=== PATIENT | female | born 1980 | race Caucasian/White ===

== ENCOUNTER 2017-03-31 11:20 | Day surgery (SDC) | payer OTHER ==
[~2017-03-31 11:20] MED LIST: Bupivacaine 0.5% 50 ML MDV ONE; Lidocaine 1% with EPINEPHrine 1:100,000 50 ML MDV ONE; Midazolam 1 MG/ML 2 ML SDV ONE; Propofol 200 MG/20 ML SDV ONE; fentaNYL 100 MCG/2 ML SDV ONE
[2017-03-31] MEDS ORDERED: Sodium Chloride 0.9% 1,000 ML IV SCH (11:30)
[2017-03-31] MEDS ORDERED: metroNIDAZOLE/Normal Saline 500 MG in Premix Bag 1 BAG IV ONE (12:00)
[2017-03-31] MEDS ORDERED: ceFAZolin 2 GM in Premix Bag 1 BAG IV ONE (12:00)
[2017-03-31] MEDS ORDERED: ceFAZolin 2 GM in Sodium Chloride 0.9% 50 ML IV ONE (12:00)
[2017-03-31 13:40] VITALS: BP 126/79
--- NOTE | 2017-04-06 14:17 | OR ---
DATE OF PROCEDURE: 03/31/2017 PROCEDURE PERFORMED: Excision of left perineal lesion, approximately 4 cm in size, full- thickness. PREOPERATIVE DIAGNOSIS: Painful infra-perineal lesion requiring excision. POSTOPERATIVE DIAGNOSIS: Painful infra-perineal lesion requiring excision. Risks, benefits, alternatives, and limitations, including but not limited to infection, bleeding, and chronic wound formation were explained, and the patient wishes to proceed. PROCEDURE IN DETAIL: The patient was placed in the supine position, in a frog-leg type position. The wound which was approximately 2 cm lateral and 2 cm inferior to her labia was preoperatively identified by the patient. An elliptical type incision was made after anesthetizing with lidocaine, and this was carried down full thickness. This was checked for hemostasis, which was achieved. The wound was closed with 3-0 Vicryl and 4-0 Vicryl in an interrupted and running fashion after thorough irrigation. Dressings were applied. The patient tolerated the procedure well. Chandler Sneed MD /[id number]
== END 2017-03-31 14:03 | disposition home or self-care (01) ==
LOC: JP.SDS 11:20
PROVIDERS: ATTEND Surgery
DX: L73.8 Other specified follicular disorders (principal); Z88.1 Allergy status to other antibiotic agents
CPT/HCPCS: 11424; 12042; J0690; J2250; J2704; J3010; J7040; J7050; 88305; 88312

== ENCOUNTER 2018-03-02 07:17 | Day surgery (SDC) | payer OTHER ==
[~2018-03-02 07:17] MED LIST changes: -Bupivacaine 0.5% 50 ML MDV ONE; -Lidocaine 1% with EPINEPHrine 1:100,000 50 ML MDV ONE
[2018-03-02] MEDS ORDERED: Dextrose 5%-Lactated Ringers 1,000 ML IV SCH (08:15)
[2018-03-02] MEDS ORDERED: Glycopyrrolate 0.2 MG/ML 2 ML SDV IVPUSH ONE ×2 (08:45→10:15)
[2018-03-02 11:17] VITALS: BP 132/91
--- NOTE | 2018-03-12 07:56 | OR ---
DATE OF PROCEDURE: 03/02/2018 PREOPERATIVE DIAGNOSES: Worsening heartburn and intermittent aspiration of esophageal contents, status post laparoscopic adjustable gastric band. POSTOPERATIVE DIAGNOSES: 1. Retained esophageal bilious fluid and scattered food with severe esophageal dilation and marked gastroesophageal reflux disease associated with laparoscopic adjustable gastric band. 2. Mild antral gastritis. PROCEDURE PERFORMED: Esophagogastroduodenoscopy with: 1. Biopsies of antrum for CLOtest. 2. Biopsies of the esophagogastric junction for histologic evaluation. ANESTHESIA: IV sedation. INDICATION FOR PROCEDURE: This is a 37-year-old, status post laparoscopic adjustable gastric band, presenting with worsening problems with heartburn and intermittent aspiration of esophageal contents. This is despite removal of fluid from the band, and the plan is to proceed with upper GI endoscopy for diagnostic purposes. Potential risks including bleeding and perforation were discussed, and the patient wishes to proceed. DETAILS OF PROCEDURE: The patient was taken to the operating room and placed in a left lateral decubitus position. IV sedation was administered, after which the upper GI endoscope was passed orally through the length of the esophagus and into the stomach with retroflexion view of the fundus, and thereafter, through the pyloric channel and into the junction of the third and fourth portions of the duodenum. Findings included some redness in the hypopharynx and larynx, consistent with some intermittent aspiration. The upper esophageal sphincter and esophageal body were inspected without significant inflammation, but the esophageal body was quite dramatically dilated. As one progressed more into the distal esophagus, there was diffuse reddening and marked upward extension of the columnar mucosal line well above the upper gastric folds and marked friability and edema of the mucosa. Within the distal esophagus, there was some retained bilious fluid, along with some scattered old food, indicative of very poor esophageal emptying. The scope easily passed through the imprint of the band in the upper stomach, which was appropriately located, i.e. there was no mechanical obstruction at the level of the band. Remainder of the stomach showed some mild redness in the antral area, and the pyloric channel and duodenum were unremarkable. At this point, biopsies were obtained from the antrum and sent for CLOtest for H. pylori. Multiple biopsies were obtained from the esophagogastric junction and sent for histologic evaluation. Minimal bleeding from the biopsy sites was seen, and the procedure was then concluded. The patient was taken to the recovery room in satisfactory condition. The plan will be to apply for conversion of the band status to Kay-en-Y gastric bypass. The present situation is particularly unsafe, given the risk of aspiration, as well as esophageal complications, and her insurance carrier will be contacted regarding consideration of conversion. Oswaldo Blood MD /[id number]
== END 2018-03-02 11:15 | disposition home or self-care (01) ==
LOC: JP.SDS 07:17
PROVIDERS: ATTEND Surgery
DX: K21.0 Gastro-esophageal reflux disease with esophagitis (principal); K29.50 Unspecified chronic gastritis without bleeding; Z88.1 Allergy status to other antibiotic agents; Z98.84 Bariatric surgery status; F17.200 Nicotine dependence, unspecified, uncomplicated
CPT/HCPCS: 43239; 87081; 88305; J2250; J2704; J3010; J7042; J3490

== ENCOUNTER 2018-07-31 07:30 | Inpatient (IN) | payer OTHER ==
[2018-08-02] MEDS ORDERED: Gabapentin 300 MG Cap PO ONE (05:45)
[2018-08-02] MEDS ORDERED: Scopolamine 1.5 MG Transdermal Patch TOP ONE (05:45)
[2018-08-02] MEDS ORDERED: Acetaminophen 500 MG Tab PO ONE (05:45)
[2018-08-02] MEDS ORDERED: Celecoxib 200 MG Cap PO ONE (05:45)
[2018-08-02] MEDS ORDERED: Dextrose 5%-Lactated Ringers 1,000 ML IV SCH ×2 (06:30→11:30)
[2018-08-02] MEDS ORDERED: Ondansetron 4 MG/2 ML SDV ONE (07:12)
[2018-08-02] MEDS ORDERED: Dexamethasone 4 MG/ML SDV ONE (07:12)
[2018-08-02] MEDS ORDERED: Neostigmine Methylsulfate 1 MG/ML 5 ML Syringe ONE (07:12)
[2018-08-02] MEDS ORDERED: Rocuronium 50 MG/5 ML Vial ONE ×2 (07:12→08:59)
[2018-08-02] MEDS ORDERED: Glycopyrrolate 0.2 MG/ML 5 ML MDV ONE (07:12)
[2018-08-02] MEDS ORDERED: Propofol 200 MG/20 ML SDV ONE (07:12)
[2018-08-02] MEDS ORDERED: fentaNYL 250 MCG/5 ML SDV ONE (07:12)
[2018-08-02] MEDS ORDERED: cefOXitin 2 GM in Sodium Chloride 0.9% 50 ML IV ONE (07:30)
[2018-08-02] MEDS: cefOXitin 2 GM Vial ONE ×2 (08:27→09:25)
[2018-08-02] MEDS ORDERED: Lidocaine 2% 100 MG/5 ML Syringe IVPUSH ONE (09:00)
[2018-08-02] MEDS ORDERED: Ketamine 500 MG/5 ML MDV IV SCH (09:00)
[2018-08-02] MEDS ORDERED: Lidocaine 0.4%/D5W 2 GM/500 ML BAG IV SCH (09:00)
[2018-08-02] MEDS ORDERED: Ropivacaine 35 ML, Dexamethasone 8 MG, EPINEPHrine 0.4 MG, Sodium Chloride 0.9% 42.6 ML NERVRT SCH ×4 (09:00)
[2018-08-02] MEDS ORDERED: fentaNYL 100 MCG/2 ML SDV ONE (09:05)
[2018-08-02] MEDS: Bupivacaine 0.5%/EPINEPHrine 1:200,000 50 ML MDV ONE ×2 (09:35→09:38)
[2018-08-02] MEDS ORDERED: Ondansetron 4 MG/2 ML SDV IVPUSH ONE (10:15)
[2018-08-02] MEDS ORDERED: hydrOXYzine HCl 100 MG/2 ML SDV IM ONE (10:21)
[2018-08-02] MEDS ORDERED: fentaNYL 100 MCG/2 ML SDV IVPUSH ONE (10:21)
[2018-08-02] MEDS: Lidocaine 0.4%/D5W 2 GM/500 ML BAG IV SCH ×2 (11:00→19:29)
[2018-08-02] MEDS ORDERED: SCOPOLAMINE PATCH CHECK TOP SCH (12:00)
[2018-08-02] MEDS ORDERED: Metoclopramide 10 MG/2 ML SDV IVPUSH PRN (12:00)
[2018-08-02] MEDS ORDERED: hydrOXYzine HCl 100 MG/2 ML SDV IM PRN (12:00)
[2018-08-02] MEDS ORDERED: Pantoprazole 40 MG Vial IVPUSH SCH ×2 (12:00)
[2018-08-02] MEDS ORDERED: Ondansetron 4 MG/2 ML SDV IVPUSH PRN (12:00)
[2018-08-02] MEDS ORDERED: diphenhydrAMINE 50 MG/ML SDV IVPUSH PRN (12:00)
[2018-08-02] MEDS ORDERED: Labetalol 20 MG/4 ML Syringe IVPUSH PRN (12:00)
[2018-08-02] MEDS: Acetaminophen Soln 650 MG/20.3 ML UD Cup PO SCH ×2 (12:10→17:23)
[2018-08-02] MEDS ORDERED: HYDROmorphone/Normal Saline 15 MG/30 ML PCA IV PRN (13:00)
[2018-08-02] MEDS ORDERED: Naloxone 0.4 MG/ML SDV IV PRN (13:02)
[2018-08-02] MEDS: Gabapentin 250 MG/5 ML Solution ML 470 ML Bottle PO SCH ×2 (13:35→20:58)
[2018-08-02] MEDS: cefOXitin 2 GM in Sodium Chloride 0.9% 50 ML IV SCH ×2 (13:35→20:59)
[2018-08-02] MEDS ORDERED: MVI, Adult with Vitamin K 10 ML, Thiamine 200 MG, Chromium/Copper/Mang/Selen/Zn 1 ML in... IV SCH ×4 (16:00)
[2018-08-02] MEDS: Heparin Sodium 5,000 Units/ML Vial SUBCUT SCH (16:42)
[2018-08-03] MEDS: Acetaminophen Soln 650 MG/20.3 ML UD Cup PO SCH ×2 (01:10→05:01)
[2018-08-03] MEDS: cefOXitin 2 GM in Sodium Chloride 0.9% 50 ML IV SCH ×2 (01:19→07:40)
[2018-08-03] MEDS ORDERED: Iohexol 647 MG/ML 50 ML SDV PO STA (01:20)
[2018-08-03] MEDS: Heparin Sodium 5,000 Units/ML Vial SUBCUT SCH (04:52)
[2018-08-03] MEDS ORDERED: Ondansetron 4 MG Tab.DIS PO PRN (07:23)
[2018-08-03] MEDS ORDERED: HYDROmorphone 2 MG Tab PO PRN (07:25)
[2018-08-03] MEDS ORDERED: LORazepam 0.5 MG Tab PO PRN (07:27)
[2018-08-03] MEDS ORDERED: traZODone 50 MG Tab PO PRN (07:27)
[2018-08-03] MEDS ORDERED: Pantoprazole 40 MG Tab.CR PO SCH (07:30)
[2018-08-03] MEDS ORDERED: Dextrose 5%-Lactated Ringers 1,000 ML IV SCH (07:30)
[2018-08-03] MEDS ORDERED: Lubiprostone 24 MCG Cap PO SCH (08:00)
[2018-08-03] MEDS ORDERED: Celecoxib 200 MG Cap PO SCH (08:00)
[2018-08-03 08:04] VITALS: BP 106/72
[2018-08-03] MEDS: Gabapentin 250 MG/5 ML Solution ML 470 ML Bottle PO SCH (08:46)
[2018-08-03] MEDS ORDERED: Venlafaxine 37.5 MG Cap.ER PO SCH (09:00)
--- NOTE | 2018-08-03 09:08 | DISCH ---
ADMISSION DIAGNOSES: Intolerance to lap band; obesity, BMI 31; vitamin D deficiency; postsurgical malabsorption; B12 deficiency; B complex deficiency; compulsive overeating; gastroesophageal reflux disease; depression/anxiety. DISCHARGE DIAGNOSES: Removal of laparoscopic gastric band system, formation of laparoscopic Kay-en-Y gastric bypass surgery, liver biopsy, and partial gastrectomy for intolerance to lap band, hepatomegaly, portion of stomach devascularized after takedown of lap band. Surgeon, Oswaldo Blood MD. Date of surgery 08/02/2018. HISTORY OF PRESENT ILLNESS: Sol is a 37-year-old female with intolerance to lap band and obesity with increasing comorbidities. After preoperative evaluation and discussion of possible risks and possible complications, she wished to proceed with surgical procedure. HOSPITAL COURSE: Sol had her surgery on 08/02/2018. She had no operative complications. On postoperative day #1, her upper GI was normal. Her activity was good. Pain managed. She received adequate dietary instructions and oral intake adequate. Vital signs were stable and she was able to be discharged to home without any complications. PHYSICAL EXAMINATION: GENERAL: Sol is a 37-year-old female. VITAL SIGNS: Height is 5 feet 4 inches. Weight is 180 pounds and 6.4 ounces, BMI 31. Last temperature was 08/02/2018 at 2300 hours. Vital signs at 0600 hours; pulse 84, respirations 16, and blood pressure 129/77. HEENT: Negative. NECK: Supple. HEART: Regular rate and rhythm. LUNGS: Clear. ABDOMEN: Dressings dry and intact. At time of examination, her FLOR drain was in, but will be removed. Abdominal binder is on. EXTREMITIES: Without peripheral edema. DISPOSITION: Discharged to home. CONDITION: Stable and improving. FOLLOWUP APPOINTMENT: Follow up with Ping Vizcaino PA-C on 08/13/2018 at 9:00 a.m. HOME PRESCRIPTIONS: 1. Tylenol 650 mg either liquid or chewable q.6 hours. 2. Celebrex 200 mg p.o. daily #14. 3. Dilaudid 2 mg one to two every 4 hours p.r.n. pain #20. 4. Zofran ODT 4 mg q.4 hours p.r.n. nausea #30. To resume home medications of: 1. Lorazepam 0.5 mg every 6 hours p.r.n. anxiety. 2. Amitiza 24 mcg oral twice daily. 3. Protonix 40 mg oral twice daily. 4. Venlafaxine 37.5 mg oral daily. 5. Trazodone 50 mg oral at bedtime p.r.n. sleep. Discontinue taking all vitamin supplements including prednisone. DISCHARGE DIET: Diet after discharge: Step-2 gastric bypass diet with no cereals. Drink 8 to 10 glasses of water a day. ACTIVITY: As tolerated. No lifting greater than 10 pounds for 2 weeks. Other activity, walk at least 6 times inside your home daily then progress as tolerated. Driving, do not drive while on pain medication. Shower/bathing, may shower. DISCHARGE INSTRUCTIONS: Notify provider if any fever, increased pain, nausea, vomiting, wound incision, keep site clean and dry. Wear abdominal binder for 2 weeks and as tolerated. SPECIAL INSTRUCTIONS: 1. Use incentive spirometer 10 times every hour while awake for 1 week. 2. Keep a record of protein and fluid intake and bring to clinic appointment.
--- NOTE | 2018-08-03 10:33 | CR ---
UGI wo KUB HISTORY: eval R -Y GBP FINDINGS: After administration of oral contrast, upright views were obtained. Post operative changes gastric bypass. Surgical drains in place. No evidence for leak. Contrast passes freely into proximal small bowel loops. IMPRESSION: No evidence for leak or obstruction.
[2018-08-03] MEDS ORDERED: MVI, Adult with Vitamin K 10 ML, Thiamine 200 MG, Chromium/Copper/Mang/Selen/Zn 1 ML in... IV SCH ×4 (16:00)
[2018-08-04] MEDS ORDERED: Cyanocobalamin (Vitamin B12) 1,000 MCG/ML SDV IM ONE (09:00)
--- NOTE | 2018-08-09 09:13 | OR ---
DATE OF PROCEDURE: 08/02/2018 PREOPERATIVE DIAGNOSES: 1. Intolerance to laparoscopic adjustable gastric band. 2. Marked hepatomegaly. 3. A portion of stomach devascularized, status post takedown of gastric band. PROCEDURES: Diagnostic laparoscopy with: 1. Removal of laparoscopic adjustable gastric band system (14660). 2. Formation of laparoscopic Kay-en-Y gastric bypass with long limb gastroenterostomy (73626). 3. Eduard-Cut needle liver biopsy (91848). 4. Partial gastrectomy (52484). ANESTHESIA: General. SEARCH ENGINE MARKETING SPECIALIST: Ping Vizcaino PA-C. INDICATIONS FOR PROCEDURE: This is a 37-year-old, status post previous laparoscopic adjustable gastric band. She recently has had problems with worsening esophagitis and intermittent aspiration of gastric contents, and plan is to proceed with removal of the band and conversion to Kay-en-Y gastric bypass. Potential risks including bleeding, infection, leaks from various GI tract closures, problems with bowel obstruction over time, as well as possibility of cardiopulmonary, septic, or hemorrhagic complications leading to were discussed, and the patient wishes to proceed. DETAILS OF PROCEDURE: The patient was taken to operating room and placed in the supine position. After general endotracheal anesthesia was induced, she was converted to a lithotomy position. The abdomen was prepped and draped and orogastric tube temporarily placed. At 15 cm inferior and 5 cm left of xiphoid process, a transverse incision was made, peritoneal cavity entered under direct vision with an Optiview trocar, inflated to 15 mmHg pressure with CO2. Laparoscope was then reinserted. No underlying trocar insertion site injuries were seen. Following this, 5 additional trocars were placed across the upper and mid abdomen and bilateral transverse abdominis plane blocks were then placed. The port tubing was then divided near the band to allow traction of the band. The band was then freed up of surrounding soft tissue attachments. During the course of this, a portion of the stomach became devascularized, and this was resected with a JERED stapler and that specimen of stomach removed. The band was then eventually freed up enough that the band could be removed, and this was then taken out through the left lateral trocar site. Remainder of the port tubing that was intraperitoneal was then divided more or less flush with the abdominal wall and that also then separately removed. Attention was then taken to formation of the gastric pouch at a plane just above the imprint of the band. The stomach was dissected free circumferentially, and then the pouch formed with a firings of the JERED black loads. Upon completion of the pouch, both staple lines appeared to be intact. During the course of dissection, the patient was noted to have marked hepatomegaly, and liver biopsies were obtained from left lobe of the liver. Attention was then taken to the formation of the Kay limb. The small bowel was then traced out 150 cm distal to the ligament of Treitz, where it was divided with a JERED stapler. Small bowel was then traced out an additional 200 cm, where the [id number] enteroenterostomy was accomplished with internal firing of the Endo-JERED 60 mm stapler, common opening was then closed transversely with same stapler, angles anastomosed, and mesenteric defect approximated with some 0 Ethibond stitch, along with fibrin sealant. The divided end of the Kay limb was then from the mesentery for a few centimeters, which allowed an antecolic position of the Kay limb up to level of the gastroesophageal junction without tension. The anvil of a 25 mm EEA stapler was then attached to [place] sump type tube, the latter taken down through the mouth and brought out through a small opening in the gastric pouch, allowing the anvil likewise to be pulled down to within the gastric pouch. Divided end of the Kay limb was then opened and the main body of the EEA stapler passed several centimeters into the lumen of the small bowel, brought up the anvil, united with it, thus creating the gastrojejunostomy. Upon removal of the stapler, double donuts of mucosa were noted within it, and small bowel was closed off with a vascular staple line. Gastrojejunostomy was reinforced with some 3-0 Vicryl seromuscular stitch, along with fibrin sealant. Leak test was accomplished with injection of 120 mL of air into the gastric pouch while submerged with cefoxitin-containing saline solution. No leaks were seen. A single Loy-Chu drain was taken out through the left lateral trocar site and placed adjacent to the gastrojejunostomy and from there up into the splenic fossa. The trocars were then sequentially removed. The peritoneal cavity deflated. The incision was closed with some 4- 0 Vicryl skin stitch and drains fixed with some 4-0 Vicryl stitch as well. Dressing was applied. The patient taken to the recovery room in satisfactory condition. There were no evident complications. Physician cataloging assistant, Ping Vizcaino, played an essential role in assisting in this case, helping to position the patient, retract structures as needed, as well as suturing and cutting sutures when indicated. Her presence improved patient safety and decreased operative time. Oswaldo Blood MD /[id number]
== END 2018-08-03 10:13 | disposition home or self-care (01) | DRG 327 ==
LOC: JP.SDS 08-02 05:27 → EDSTATUS 08-02 07:15 → JP.SDSSCHI 08-02 09:00 → JP.2SS 08-02 09:01
PROVIDERS: ADMIT Surgery; ATTEND Surgery
PROC: 0DP64CZ Removal of Extraluminal Device from Stomach, Percutaneous Endoscopic Approach (ICD-10-PCS; principal; 2018-08-02)
PROC: 0D164ZA Bypass Stomach to Jejunum, Percutaneous Endoscopic Approach (ICD-10-PCS; 2018-08-02)
PROC: 0FB24ZX Excision of Left Lobe Liver, Percutaneous Endoscopic Approach, Diagnostic (ICD-10-PCS; 2018-08-02)
PROC: 0DB64ZZ Excision of Stomach, Percutaneous Endoscopic Approach (ICD-10-PCS; 2018-08-02)
PROC: 3E0T3BZ Introduction of Anesthetic Agent into Peripheral Nerves and Plexi, Percutaneous Approach (ICD-10-PCS; 2018-08-02)
DX: K95.09 Other complications of gastric band procedure (principal); K91.2 Postsurgical malabsorption, not elsewhere classified; R16.0 Hepatomegaly, not elsewhere classified; E66.9 Obesity, unspecified; K31.89 Other diseases of stomach and duodenum; Y83.8 Other surgical procedures as the cause of abnormal reaction of the patient, or of later complication, without mention of misadventure at the time of the procedure; Y92.009 Unspecified place in unspecified non-institutional (private) residence as the place of occurrence of the external cause; E55.9 Vitamin D deficiency, unspecified; E53.8 Deficiency of other specified B group vitamins; Z98.84 Bariatric surgery status; Z68.31 Body mass index [BMI] 31.0-31.9, adult; R63.2 Polyphagia; E53.9 Vitamin B deficiency, unspecified; K21.9 Gastro-esophageal reflux disease without esophagitis; F32.9 Major depressive disorder, single episode, unspecified; F41.9 Anxiety disorder, unspecified; Z88.1 Allergy status to other antibiotic agents
CPT/HCPCS: 36415; 74240; 74240-26; 81025; 82962; 86850; 86900; 86901; 88300; 88307; 88313; 94762; A9270-GY; C9113; J0171; J0694; J1100; J1170; J1644; J2001; J2405; J2704; J2710; J2795; J3010; J3410; J3411; J3490; J7030; J7042; J7050; Q9967

== ENCOUNTER 2018-11-24 09:06 | Day surgery (SDC) | payer OTHER ==
[~2018-11-24 09:06] MED LIST changes: +Bupivacaine 0.5%/EPINEPHrine 1:200,000 50 ML MDV ONE; +Dexamethasone 4 MG/ML SDV ONE; +Glycopyrrolate 0.2 MG/ML 5 ML MDV ONE; +Meropenem 500 MG SDV ONE; -Midazolam 1 MG/ML 2 ML SDV ONE; +Neostigmine Methylsulfate 1 MG/ML 5 ML Syringe ONE; +Ondansetron 4 MG/2 ML SDV ONE; +Rocuronium 50 MG/5 ML Vial ONE; +Succinylcholine 200 MG/10 ML MDV ONE; -fentaNYL 100 MCG/2 ML SDV ONE; +fentaNYL 250 MCG/5 ML SDV ONE
[2018-11-24] MEDS ORDERED: Acetaminophen 500 MG Tab PO ONE (09:40)
[2018-11-24] MEDS ORDERED: ceFAZolin 2 GM in Premix Bag 1 BAG IV ONE (09:40)
[2018-11-24] MEDS ORDERED: Ropivacaine 30 ML, Dexamethasone 8 MG, EPINEPHrine 0.4 MG, Sodium Chloride 0.9% 47.6 ML NERVRT SCH ×4 (10:00)
[2018-11-24] MEDS ORDERED: Dextrose 5%-Lactated Ringers 1,000 ML IV SCH (10:15)
[2018-11-24] MEDS ORDERED: Ketorolac 60 MG/2 ML SDV ONE (12:23)
[2018-11-24] MEDS ORDERED: Meropenem 500 MG SDV IRR ONE (13:41)
[2018-11-24 13:54] VITALS: BP 114/55
--- NOTE | 2018-12-07 11:03 | OR ---
DATE OF PROCEDURE: 11/24/2018 PREOPERATIVE DIAGNOSES: 1. Dysphagia, status post Kay-en-Y gastric bypass. 2. Persistent pain at the left subcostal hernia repair site. POSTOPERATIVE DIAGNOSES: 1. Minimal stricturing at the gastrojejunostomy. 2. Recurrent incisional hernia. 3. 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 OPERATIVE PROCEDURE: 1. Upper GI endoscopy with dilation of gastrojejunostomy (43426). 2. Diagnostic laparoscopy with lysis of adhesions. a. Repair of recurrent incisional hernia with mesh (18199). b. Placement of Interceed mesh to limit recurrent adhesion formation (25437). 3. Excision of probable abdominal wall neuroma in the left subcostal area (32882). ANESTHESIA: General. INDICATION FOR PROCEDURE: This is a 38-year-old female presenting with some persistent, at this point, [id number] dysphagia, status post Kay-en-Y gastric bypass. She has had previous strictures at the gastrojejunostomy that have been dilated. Plan is to proceed with upper GI endoscopy with dilation as indicated. Potential risks, including bleeding and perforation, were discussed. The patient also has chronic pain in the area of a left subcostal incisional hernia. This is associated with some tenderness in the scar overlying this as well. Plan with regard to this is to proceed with diagnostic laparoscopy, repair of the likely recurrent hernia with mesh, and then excision of the scar overlying that to alleviate what may likely be an area of neuroma involving that scar. Potential risks including bleeding, infection, injury to underlying viscera, problems with mesh becoming infected or the hernia recurring, as well as the possibility of persistent pain postoperatively were gone over, and the patient wishes to proceed. DETAILS OF PROCEDURE: The patient was taken to the operating room and placed in a supine position. After general endotracheal anesthesia was induced, she was converted to a lithotomy position. The Lambert catheter was inserted, which was removed at the end of the procedure, and the abdomen was prepped and draped. In the left lower quadrant, a transverse incision was made and the peritoneal cavity was entered under direct vision with an Optiview trocar and inflated to 15 mmHg pressure with CO2. Some adhesions that were in the area of the pelvis between the omentum and the pelvic and abdominal wall were taken down. The hernia at this point did not have any significant incarcerated components and was fairly small in terms of the convexity visualized at the hernia site. Some additional adhesions in that area were then taken down as well. Following this, then, a 15.2 cm circular Ventralight mesh was selected and placed in intraabdominal location, after being soaked in an antibiotic-containing saline solution. Through the center of the hernia, a small stab wound was made and the inflation balloon brought up through the abdominal wall, centering the mesh over the area of the herniation. Mesh was then further affixed circumferentially to the abdominal wall with absorbable tacking screws, after the balloon was inflated and pushed the mesh up against the abdominal wall. Once this was well fixed in all directions, the balloon was deflated and removed. There appeared to be coverage of the area of herniation in all directions. To limit recurrent adhesion formation by displacing the viscera from the pelvic and abdominal wall, Interceed mesh was then placed underlying the mesh, extending from there down toward the pelvis, and at that point, no further intraabdominal problems were noted. The trocars were then sequentially removed. The fascia at the 12 mm site was closed with 0 Vicryl stitch and the skin with 4-0 Vicryl skin stitch. The area in the left subcostal area where the scar was present was then incised with a transverse incision, which continued down through the skin and subcutaneous tissue. The dense scar in that area was then removed. This came out more or less in 3 pieces, and at least one of these had what appeared to be a visible nerve entering it, likely associated with a neuroma formation. Following removal of the scar, there was some disruption of the anterior muscular fascia, which was then closed with a #1 Vicryl stitch and subcutaneous tissue was approximated with 4-0 Vicryl stitch and the skin was closed with 4-0 Vicryl skin stitch as well. Dressing was applied. At this point, the upper GI endoscope was passed orally through the length of the esophagus, and the scope was able to be passed through the gastrojejunostomy at this time with there only being a mild stricture present. A 36-Romanian dilator was then inflated across the anastomosis. This resulted in slight increase in diameter. The scope was then withdrawn, procedure was concluded. The patient was taken to the recovery room in satisfactory condition. Oswaldo Blood MD /[id number]
== END 2018-11-24 14:43 | disposition home or self-care (01) ==
LOC: JP.SDS 09:06 → JP.MS 12:45 → JP.SDS 14:43
PROVIDERS: ATTEND Surgery
DX: K91.89 Other postprocedural complications and disorders of digestive system (principal); K43.2 Incisional hernia without obstruction or gangrene; D36.15 Benign neoplasm of peripheral nerves and autonomic nervous system of abdomen; K21.9 Gastro-esophageal reflux disease without esophagitis; F17.200 Nicotine dependence, unspecified, uncomplicated; Z98.84 Bariatric surgery status; K91.2 Postsurgical malabsorption, not elsewhere classified; Z88.1 Allergy status to other antibiotic agents
CPT/HCPCS: 36415; 43245; 49656; 49999; 64774; 80053; 83735; 84100; 85027; 88304; 88342; C1781; J0330; J0690; J1100; J1885; J2020; J2185; J2405; J2704; J2710; J3010; J3490; J7042

== ENCOUNTER 2019-02-18 07:01 | Day surgery (SDC) | payer OTHER ==
[~2019-02-18 07:01] MED LIST changes: -Bupivacaine 0.5%/EPINEPHrine 1:200,000 50 ML MDV ONE; -Dexamethasone 4 MG/ML SDV ONE; -Glycopyrrolate 0.2 MG/ML 5 ML MDV ONE; -Meropenem 500 MG SDV ONE; +Midazolam 1 MG/ML 2 ML SDV ONE; -Neostigmine Methylsulfate 1 MG/ML 5 ML Syringe ONE; -Ondansetron 4 MG/2 ML SDV ONE; -Rocuronium 50 MG/5 ML Vial ONE; -Succinylcholine 200 MG/10 ML MDV ONE; +fentaNYL 100 MCG/2 ML SDV ONE; -fentaNYL 250 MCG/5 ML SDV ONE
[2019-02-18] MEDS ORDERED: Cyanocobalamin (Vitamin B12) 1,000 MCG/ML SDV IM ONE (07:30)
[2019-02-18] MEDS ORDERED: Glycopyrrolate 0.2 MG/ML 2 ML SDV IVPUSH ONE (07:30)
[2019-02-18] MEDS ORDERED: Lactated Ringers 1,000 ML IV SCH (07:45)
[2019-02-18] MEDS ORDERED: MVI, Adult with Vitamin K 10 ML, Thiamine 200 MG, Chromium/Copper/Mang/Selen/Zn 1 ML in... IV ONE ×8 (09:00)
[2019-02-18 10:31] VITALS: BP 102/64
--- NOTE | 2019-02-25 14:14 | OR ---
DATE OF PROCEDURE: 02/18/2019 PREOPERATIVE DIAGNOSIS: Probable stricture at gastrojejunostomy. POSTOPERATIVE DIAGNOSIS: Moderate stricture at gastrojejunostomy. OPERATIVE PROCEDURE: Upper GI endoscopy with dilation of gastrojejunostomy (61544). ANESTHESIA: IV sedation. INDICATION FOR PROCEDURE: This is a 38-year-old female presenting with probable stricturing at her gastrojejunostomy. Plan is to proceed with upper GI endoscopy with dilation as indicated. Potential risks including bleeding and perforation were discussed, and the patient wishes to proceed. DETAILS OF PROCEDURE: The patient was taken to the operating room and placed in a left lateral decubitus position. IV sedation was administered, after which the upper GI endoscope was passed orally through the length of the esophagus and into the area of the gastrojejunostomy. The 1 cm scope could not quite be passed through that anastomosis. A Bard gastrointestinal balloon catheter was then centered across the anastomosis and inflated to 36-Mongolian size. This was held in this position for 1 minute, after which the balloon catheter was deflated and withdrawn. Scope was easily passed through the anastomosis. No complications were noted. The procedure concluded. The patient was taken to the recovery room in a satisfactory condition. Oswaldo Blood MD /[id number]
== END 2019-02-18 10:47 | disposition home or self-care (01) ==
LOC: JP.SDS 07:01
PROVIDERS: ATTEND Surgery
DX: K91.89 Other postprocedural complications and disorders of digestive system (principal); K21.9 Gastro-esophageal reflux disease without esophagitis; Z93.4 Other artificial openings of gastrointestinal tract status; Z88.1 Allergy status to other antibiotic agents
CPT/HCPCS: 43245; J2250; J2704; J3010; J3411; J3420; J7120

== ENCOUNTER 2019-03-22 07:16 | Day surgery (SDC) | payer OTHER ==
[2019-03-22] MEDS ORDERED: Cyanocobalamin (Vitamin B12) 1,000 MCG/ML SDV IM ONE (07:45)
[2019-03-22] MEDS ORDERED: Glycopyrrolate 0.2 MG/ML 2 ML SDV IVPUSH ONE (07:45)
[2019-03-22] MEDS ORDERED: Lactated Ringers 1,000 ML IV SCH (07:45)
[2019-03-22] MEDS ORDERED: Dexamethasone 4 MG/ML SDV ONE (08:15)
[2019-03-22] MEDS ORDERED: MVI, Adult with Vitamin K 10 ML, Thiamine 200 MG, Chromium/Copper/Mang/Selen/Zn 1 ML in... IV ONE ×4 (08:45)
[2019-03-22 09:30] VITALS: BP 102/61
--- NOTE | 2019-03-26 11:15 | OR ---
DATE OF PROCEDURE: 03/22/2019 SURGEON: Oswaldo Blood MD PREOPERATIVE DIAGNOSIS: Probable stricture at gastrojejunostomy. POSTOPERATIVE DIAGNOSIS: Mild stricture at gastrojejunostomy. OPERATIVE PROCEDURE: Upper GI endoscopy with dilation of gastrojejunostomy (14758). ANESTHESIA: IV sedation. INDICATION FOR PROCEDURE: This is a 38-year-old status post band conversion to Kay-en-Y gastric bypass presenting with some recurrent symptoms of stricturing at her gastrojejunostomy. Plan is to proceed with upper GI endoscopy with dilation as indicated. Potential risks including bleeding and perforation were discussed, and the patient wishes to proceed. DETAILS OF PROCEDURE: The patient was taken to the operating room and placed in a left lateral decubitus position. IV sedation was administered, after which the upper GI endoscope was passed orally through the length of the esophagus and into the gastric pouch. The patient was noted to have mild stricturing of gastrojejunostomy. The 1 cm scope could be passed across the anastomosis, but there was, at this point, minimal mucosal inflammation at that level. The Bard gastrointestinal balloon catheter was centered across the anastomosis and inflated to 36-Georgian size. This was held in position for 1 minute, after which the balloon catheter was deflated and withdrawn. The scope was then withdrawn. A significant degree of dilation was confirmed, and no complications were evident. The patient was taken to the recovery room in satisfactory condition. Oswaldo Blood MD /[id number]
== END 2019-03-22 10:00 | disposition home or self-care (01) ==
LOC: JP.SDS 07:16
PROVIDERS: ATTEND Surgery
DX: K22.2 Esophageal obstruction (principal); K21.9 Gastro-esophageal reflux disease without esophagitis
CPT/HCPCS: 43245; J1100; J2250; J2704; J3010; J3411; J3420; J7120

== ENCOUNTER 2019-05-09 05:33 | Day surgery (SDC) | payer OTHER ==
[2019-05-09] MEDS ORDERED: Dextrose 5%-Lactated Ringers 1,000 ML IV SCH (06:00)
[2019-05-09] MEDS ORDERED: Acetaminophen 500 MG Tab PO ONE (06:00)
[2019-05-09] MEDS ORDERED: Scopolamine 1.5 MG Transdermal Patch TOP ONE (06:00)
[2019-05-09] MEDS ORDERED: Bupivacaine 0.5%/EPINEPHrine 1:200,000 50 ML MDV ONE (06:41)
[2019-05-09] MEDS ORDERED: Midazolam 1 MG/ML 2 ML SDV ONE (06:58)
[2019-05-09] MEDS ORDERED: Propofol 200 MG/20 ML SDV ONE (06:58)
[2019-05-09] MEDS ORDERED: fentaNYL 100 MCG/2 ML SDV ONE ×2 (06:58→08:21)
[2019-05-09] MEDS ORDERED: Ondansetron 4 MG/2 ML SDV ONE (06:58)
[2019-05-09] MEDS ORDERED: Lidocaine 2% 5 ML SDV ONE (06:58)
[2019-05-09] MEDS ORDERED: Dexamethasone 4 MG/ML SDV ONE (06:58)
[2019-05-09] MEDS: cefOXitin 2 GM in Sodium Chloride 0.9% 50 ML IV ONE ×2 (07:36→09:59)
[2019-05-09] MEDS ORDERED: Ropivacaine 28 ML, dexAMETHasone 8 MG, EPINEPHrine 0.4 MG, Sodium Chloride 0.9% 49.6 ML NERVRT SCH ×4 (07:45)
[2019-05-09] MEDS ORDERED: Glycopyrrolate 0.2 MG/ML 5 ML MDV ONE (08:40)
[2019-05-09] MEDS ORDERED: Neostigmine Methylsulfate 1 MG/ML 5 ML Syringe ONE (08:40)
[2019-05-09] MEDS ORDERED: Ketorolac 60 MG/2 ML SDV ONE (08:54)
[2019-05-09] MEDS ORDERED: Ondansetron 4 MG/2 ML SDV IVPUSH PRN (10:27)
[2019-05-09] MEDS ORDERED: Pantoprazole 40 MG Vial IVPUSH SCH (11:00)
[2019-05-09 11:59] VITALS: BP 102/59
[2019-05-09] MEDS ORDERED: Acetaminophen 500 MG Tab PO SCH (12:00)
--- NOTE | 2019-05-10 14:03 | DISCH ---
FINAL DIAGNOSIS: Biliary dyskinesia. SECONDARY DIAGNOSES: 1. Bariatric surgery status. 2. History of gastroesophageal reflux disease. 3. History of reactive hypoglycemia. OPERATIVE PROCEDURES: Done on 05/09/2019, laparoscopic cholecystectomy. SUMMARY: This is a 38-year-old, presenting with ongoing nausea, particularly in the postprandial period. She had CCK stimulated HIDA scan that was positive, both in terms of ejection fraction as well as reproduction of symptoms, and she was admitted for a laparoscopic cholecystectomy. Potential risks of the procedure were reviewed, and the patient underwent a cholecystectomy early in the day on 05/09/2019. The patient generally does not like these narcotics, and pain was managed with TAP block, along with anesthesia locally to the incision, along with p.r.n. Tylenol and ibuprofen. She was discharged later in the day. Followup will be with Ping Vizcaino in roughly 8 days, and she will be allowed to take diet as tolerated. She will continue her usual medications, plus the Tylenol and ibuprofen p.r.n. for pain.
--- NOTE | 2019-05-10 14:13 | OR ---
DATE OF PROCEDURE: 05/09/2019 PREOPERATIVE DIAGNOSIS: Biliary dyskinesia. POSTOPERATIVE DIAGNOSIS: Biliary dyskinesia. OPERATIVE PROCEDURE: Laparoscopic cholecystectomy (69015). ANESTHESIA: General. ASSISTANTS: Ping Vizcaino PA-C, and HIPOLITO Payne1. INDICATION FOR PROCEDURE: This is a 38-year-old presenting with ongoing nausea. This is exacerbated somewhat by eating. A CCK-stimulated HIDA scan showed a below normal ejection fraction, but more importantly had almost precise reproduction of the patient's symptoms with the CCK injection. Given this, she needs to undergo a laparoscopic cholecystectomy. Potential risks of the procedure including bleeding, infection, injury to common bile duct, possible incomplete relief of symptoms postprocedure were all reviewed, and the patient wishes to proceed. DETAILS OF PROCEDURE: The patient was taken to the operating room and placed in a supine position. After general endotracheal anesthesia was induced, the abdomen was prepped and draped. A transverse infraumbilical incision was made and the peritoneal cavity entered with the Veress needle and inflated to 15 mmHg pressure with CO2. was then removed and the 12 mm trocar was then placed. No underlying trocar insertion site injuries were seen. Following this, a 12 mm epigastric trocar was placed along with 5 mm right subcostal trocar. The upper abdomen was examined. The patient was noted to have a distended stomach, edematous appearing gallbladder, consistent with chronic cholecystitis. Gallbladder was retracted anterolaterally. Dissection began on the gallbladder neck and continued down around the gallbladder neck and cystic duct junction with Harmonic scalpel. Once the area was well-delineated along with the adjacent cystic artery, both structures were divided with 3 clips proximally and 1 distally, and the gallbladder was then dissected off the gallbladder bed using Harmonic scalpel. Gallbladder was then delivered through the epigastric trocar site without difficulty. Inspection showed a small amount of sludge type material present in the gallbladder along with a cholesterolosis of the gallbladder wall mucosa. At this point, the area of dissection was inspected. No bleeding or other problems were noted. A drain was felt not to be necessary. The trocars were then sequentially removed. The fascia closed with 0 Vicryl stitch and the skin with 4-0 Vicryl skin stitch. Dressing was applied. The patient was taken to the recovery room in satisfactory condition. To augment the patient's postoperative pain control intraoperatively, bilateral transverse abdominis plane blocks were placed and all 3 incisions were then anesthetized with 0.5% Marcaine with epinephrine. The patient was taken to the recovery room in satisfactory condition. Physician workers compensation claims assistant, Ping Vizcaino, played an essential role in assisting in this case helping to position the patient, retract structures as needed, as well as suturing and cutting sutures when indicated. Her presence improved patient safety and decreased the operative time. Oswaldo Blood MD /[id number]
== END 2019-05-09 12:25 | disposition home or self-care (01) ==
LOC: JP.SDS 05:33
PROVIDERS: ATTEND Surgery
DX: K80.10 Calculus of gallbladder with chronic cholecystitis without obstruction (principal); K82.8 Other specified diseases of gallbladder; K90.49 Malabsorption due to intolerance, not elsewhere classified; E53.8 Deficiency of other specified B group vitamins; E53.9 Vitamin B deficiency, unspecified; E55.9 Vitamin D deficiency, unspecified; K21.9 Gastro-esophageal reflux disease without esophagitis; E16.1 Other hypoglycemia; Z87.891 Personal history of nicotine dependence; Z79.899 Other long term (current) drug therapy; Z88.1 Allergy status to other antibiotic agents; Z98.84 Bariatric surgery status
CPT/HCPCS: 47562; A9270; J0171; J0694; J1100; J1885; J2001; J2250; J2405; J2704; J2710; J2795; J3010; J3490; J7042; J7050

== ENCOUNTER 2019-08-26 06:00 | Day surgery (SDC) | payer OTHER ==
[2019-08-26] MEDS ORDERED: Lactated Ringers 1,000 ML IV SCH (07:00)
[2019-08-26] MEDS ORDERED: Propofol 200 MG/20 ML SDV ONE (07:26)
[2019-08-26] MEDS ORDERED: fentaNYL 100 MCG/2 ML SDV ONE (07:26)
[2019-08-26] MEDS ORDERED: Midazolam 1 MG/ML 2 ML SDV ONE (07:26)
[2019-08-26] MEDS ORDERED: Cyanocobalamin (Vitamin B12) 1,000 MCG/ML SDV IM ONE (07:45)
[2019-08-26] MEDS ORDERED: Glycopyrrolate 0.2 MG/ML 2 ML SDV IVPUSH ONE (07:45)
[2019-08-26] MEDS ORDERED: MVI, Adult with Vitamin K 10 ML, Thiamine 200 MG, Chromium/Copper/Mang/Selen/Zn 1 ML in... IV ONE ×4 (08:30)
[2019-08-26 09:46] VITALS: BP 96/54; PULSE 75
--- NOTE | 2019-08-29 13:09 | OR ---
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 POSTOPERATIVE DIAGNOSIS: Normal exam status post Kay-en-Y gastric bypass. OPERATIVE PROCEDURE: Upper GI endoscopy. ANESTHESIA: IV sedation. INDICATION FOR PROCEDURE: A 38-year-old status post Kay-en-Y gastric bypass converted to normal lap band. She did have some problems with stricturing and it was felt at this point that perhaps some degree of stricturing remained. The plan was to proceed with an upper GI endoscopy with dilation as indicated. Potential risks including bleeding and perforation were discussed, and the patient wishes to proceed. DETAILS OF PROCEDURE: The patient was taken to the operating room and placed in a left lateral decubitus position. IV sedation was administered after which the upper GI endoscope was passed orally through the length of the esophagus and into the gastric pouch. The scope was easily passed through the gastrojejunostomy and from there roughly 20 cm into the Kay limb. At this point, there appeared to be no significant stricturing at the gastrojejunostomy present, somewhat more narrow than average, but without significant inflammation. It was felt that a dilation at this point would have some risk of perforation inflammatory response which at this point appears to be abating, and so we elected not to do any additional dilation. The scope was then withdrawn and the procedure concluded. There were no evident complications. Oswaldo Blood MD /[id number]
== END 2019-08-26 09:45 | disposition home or self-care (01) ==
LOC: JP.SDS 06:00
PROVIDERS: ATTEND Surgery
DX: R13.10 Dysphagia, unspecified (principal); K21.9 Gastro-esophageal reflux disease without esophagitis; F17.200 Nicotine dependence, unspecified, uncomplicated; Z88.1 Allergy status to other antibiotic agents
CPT/HCPCS: 43235; J2250; J2704; J3010; J3411; J3420; J7120

== ENCOUNTER 2019-11-02 05:57 | Day surgery (SDC) | payer OTHER ==
[2019-11-02] MEDS ORDERED: Dextrose 5%-Lactated Ringers 1,000 ML IV SCH (06:45)
[2019-11-02] MEDS ORDERED: Bupivacaine 0.5%/EPINEPHrine 1:200,000 50 ML MDV ONE (06:52)
[2019-11-02] MEDS ORDERED: Midazolam 1 MG/ML 2 ML SDV ONE (07:16)
[2019-11-02] MEDS ORDERED: fentaNYL 100 MCG/2 ML SDV ONE (07:16)
[2019-11-02] MEDS ORDERED: Ondansetron 4 MG/2 ML SDV ONE (07:18)
[2019-11-02] MEDS ORDERED: Propofol 200 MG/20 ML SDV ONE (07:18)
[2019-11-02] MEDS ORDERED: Dexamethasone 4 MG/ML SDV ONE (07:18)
[2019-11-02] MEDS ORDERED: Neostigmine Methylsulfate 1 MG/ML 5 ML Syringe ONE (07:18)
[2019-11-02] MEDS ORDERED: Rocuronium 50 MG/5 ML Vial ONE (07:18)
[2019-11-02] MEDS ORDERED: Glycopyrrolate 0.2 MG/ML 5 ML MDV ONE (07:18)
[2019-11-02] MEDS ORDERED: Meropenem 500 MG in Sodium Chloride 0.9% 50 ML IV ONE (07:30)
[2019-11-02] MEDS ORDERED: Lidocaine/Prilocaine 2.5-2.5% Crm 5 GM Tube TOP ONE (09:30)
[2019-11-02] MEDS ORDERED: Acetaminophen 500 MG Tab PO PRN (09:51)
[2019-11-02] MEDS ORDERED: traMADol 50 MG Tab PO PRN (09:51)
[2019-11-02 09:57] VITALS: BP 104/66; PULSE 55
--- NOTE | 2019-11-13 16:41 | OR ---
DATE OF PROCEDURE: 11/02/2019 SURGEON: Oswaldo Blood MD PREOPERATIVE DIAGNOSIS: Chronic severe anal pain. POSTOPERATIVE DIAGNOSES: 1. Anal fissure. 2. Thrombosed mixed hemorrhoid. OPERATIVE PROCEDURE: 1. Anal exam under anesthesia with: a. Anal fissurectomy with left lateral internal sphincterotomy. b. Excision of a single column of mixed prolapsed thrombosed hemorrhoid (45135). ANESTHESIA: General. INDICATION FOR PROCEDURE: This is a 39-year-old presenting with severe ongoing anal pain. This has been going on for roughly 2 months. We were unable to obtain satisfactory examination in the clinic due to lot of sphincter spasm. Clinically, she most likely has an anal fissure. Plan is to proceed with anal exam under anesthesia with procedures as indicated which would include the potential fissurectomy and internal sphincterotomy, and/or treatment of hemorrhoids. Potential risks of the procedure including bleeding, infection, some possible problems with fecal incontinence were all reviewed with the patient and she wishes to proceed. DETAILS OF PROCEDURE: The patient was taken to the operating room. After general endotracheal anesthesia was induced, she was placed in a lithotomy position and perianal prep performed. Initial digital examination showed a linear scar posteriorly, and this was confirmed to contain a fissure. The patient also had a small roughly BB-sized thrombosed hemorrhoid, which was likely contributing to the discomfort as well. This was super-mixed column of thrombosed hemorrhoids located just to the right of the posterior midline. At this point, the fissure was then initially excised and the mucosa were sutured with 4-0 Vicryl stitch, left lateral internal sphincterotomy was then accomplished with revision of the mucosa over the internal sphincter, and the lower roughly 1/2 to 2/3 of the sphincter being divided. This was then closed with a 4-0 Vicryl stitch as well. Both sites were then anesthetized with 0.5% Marcaine. The thrombosed hemorrhoid was then located and right angle clamp was placed underneath it and then excised. This area was then closed with figure-of- eight stitch of 4-0 Vicryl stitch and also anesthetized with 0.5% Marcaine. At that point, no further problems were noted, and the procedure concluded. The patient was taken to the recovery room in satisfactory condition. Oswaldo Blood MD /[id number]
== END 2019-11-02 10:47 | disposition home or self-care (01) ==
LOC: JP.SDS 05:57
PROVIDERS: ATTEND Surgery
DX: K60.2 Anal fissure, unspecified (principal); K64.5 Perianal venous thrombosis
CPT/HCPCS: 36415; 46257; 80048; 82728; 83735; 84100; 85027; 88304; A9270; J1100; J2185; J2250; J2405; J2704; J2710; J3010; J3490; J7042; J7050; Q0138; J7121

== ENCOUNTER 2020-01-24 06:03 | Day surgery (SDC) | payer OTHER ==
[2020-01-24] MEDS ORDERED: Cyanocobalamin (Vitamin B12) 1,000 MCG/ML SDV IM ONE (06:30)
[2020-01-24] MEDS ORDERED: Lactated Ringers 1,000 ML IV SCH (07:00)
[2020-01-24] MEDS ORDERED: fentaNYL 100 MCG/2 ML SDV ONE (07:19)
[2020-01-24] MEDS ORDERED: Midazolam 1 MG/ML 2 ML SDV ONE (07:19)
[2020-01-24] MEDS ORDERED: Propofol 200 MG/20 ML SDV ONE (07:20)
[2020-01-24] MEDS ORDERED: Glycopyrrolate 0.2 MG/ML 2 ML SDV IVPUSH ONE (07:30)
[2020-01-24] MEDS ORDERED: MVI, Adult with Vitamin K 10 ML, Thiamine 200 MG, Chromium/Copper/Mang/Selen/Zn 1 ML in... IV ONE ×4 (08:30)
[2020-01-24 09:29] VITALS: BP 99/62; PULSE 54
--- NOTE | 2020-02-03 15:18 | OR ---
DATE OF PROCEDURE: 01/24/2020 SURGEON: Oswaldo lBood MD PREOPERATIVE DIAGNOSIS: Possible stricture at gastrojejunostomy. POSTOPERATIVE DIAGNOSIS: Mild stricture at gastrojejunostomy. OPERATIVE PROCEDURE: Upper gastrointestinal endoscopy with dilation of gastrojejunostomy (22051). ANESTHESIA: IV sedation. INDICATION FOR PROCEDURE: The patient is status post revision of lap band status post Kay- en-Y gastric bypass who has had some problems with recurrent strictures at the gastrojejunostomy. Plan is to proceed with upper GI endoscopy with dilation as indicated. Potential risks including bleeding and perforation were discussed, and the patient wishes to proceed. DETAILS OF PROCEDURE: The patient was taken to the operative room and placed in a left lateral decubitus position. IV sedation was administered, after which the upper GI endoscope was passed orally through the length of the esophagus into the stomach and then into the area of the esophagogastric junction. The patient was noted have a mild stricture at that level, and the scope, which measured 1 cm in diameter, was able to be passed through that area. The visualized Kay limb was otherwise unremarkable. At this point, Bard gastrointestinal catheter was centered across the anastomosis and inflated to 45-Syrian size. This was held in position for 1 minute, after which the balloon catheter was deflated and withdrawn. evidence of some heme in that area. The scope was then withdrawn and the procedure then concluded. There were no evident complications. Oswaldo Blood MD /[id number]
== END 2020-01-24 09:36 | disposition home or self-care (01) ==
LOC: JP.SDS 06:03
PROVIDERS: ATTEND Surgery
DX: K22.2 Esophageal obstruction (principal); Z88.1 Allergy status to other antibiotic agents; Z93.1 Gastrostomy status
CPT/HCPCS: 43249; J2250; J2704; J3010; J3411; J3420; J7120

== ENCOUNTER 2021-10-19 07:15 | Inpatient (IN) | payer BC ==
[2021-10-19] MEDS: Scopolamine 1.5 MG Transdermal Patch TOP SCH ×2 (09:03→09:04)
[2021-10-19] MEDS ORDERED: Bupivacaine 0.5%/EPINEPHrine 1:200,000 50 ML MDV ONE (09:16)
[2021-10-19] MEDS ORDERED: Meropenem 500 MG SDV ONE (09:24)
[2021-10-19] MEDS ORDERED: Dextrose 5%-Lactated Ringers 1,000 ML IV SCH ×2 (09:30→14:00)
[2021-10-19] MEDS ORDERED: Celecoxib 200 MG Cap PO ONE (09:30)
[2021-10-19] MEDS ORDERED: Acetaminophen 500 MG Tab PO ONE (09:30)
[2021-10-19] MEDS ORDERED: Rocuronium 50 MG/5 ML Vial ONE (10:29)
[2021-10-19] MEDS ORDERED: Glycopyrrolate 0.2 MG/ML 5 ML MDV ONE (10:29)
[2021-10-19] MEDS ORDERED: Ondansetron 4 MG/2 ML SDV ONE (10:29)
[2021-10-19] MEDS ORDERED: fentaNYL 250 MCG/5 ML SDV ONE (10:29)
[2021-10-19] MEDS ORDERED: Neostigmine Methylsulfate 1 MG/ML 5 ML Syringe ONE (10:29)
[2021-10-19] MEDS ORDERED: Dexamethasone 4 MG/ML SDV ONE (10:29)
[2021-10-19] MEDS ORDERED: Succinylcholine 200 MG/10 ML MDV ONE (10:29)
[2021-10-19] MEDS ORDERED: Propofol 200 MG/20 ML SDV ONE (10:29)
[2021-10-19] MEDS ORDERED: cefOXitin 2 GM in Sodium Chloride 0.9% 50 ML IV ONE (10:30)
[2021-10-19] MEDS ORDERED: Ketamine 500 MG/5 ML MDV IV SCH (10:45)
[2021-10-19] MEDS ORDERED: Ropivacaine 30 ML, dexAMETHasone 8 MG, EPINEPHrine 0.4 MG, Sodium Chloride 0.9% 47.6 ML NERVRT SCH ×4 (10:45)
[2021-10-19] MEDS ORDERED: Ketamine 16 MG in Sodium Chloride 0.9% 19.84 ML IV SCH (10:45)
[2021-10-19] MEDS ORDERED: fentaNYL 100 MCG/2 ML SDV ONE (12:09)
[2021-10-19] MEDS ORDERED: Lactated Ringers 1,000 ML ONE (12:11)
[2021-10-19] MEDS ORDERED: hydrOXYzine HCL 100 MG/2 ML SDV IM ONE (13:15)
[2021-10-19] MEDS ORDERED: Acetaminophen 500 MG Tab PO PRN (14:00)
[2021-10-19] MEDS ORDERED: HYDROmorphone 0.5 MG/0.5 ML Syringe IVPUSH PRN (14:00)
[2021-10-19] MEDS ORDERED: Labetalol 20 MG/4 ML Syringe IVPUSH PRN (14:00)
[2021-10-19] MEDS ORDERED: diphenhydrAMINE 50 MG/ML SDV IVPUSH PRN (14:00)
[2021-10-19] MEDS ORDERED: Ondansetron 4 MG/2 ML SDV IVPUSH PRN (14:00)
[2021-10-19] MEDS ORDERED: Metoclopramide 10 MG/2 ML SDV IVPUSH PRN (14:00)
[2021-10-19] MEDS ORDERED: Cyclobenzaprine 10 MG Tab PO PRN (14:00)
[2021-10-19] MEDS ORDERED: Pantoprazole 40 MG Vial IVPUSH SCH (14:00)
[2021-10-19] MEDS ORDERED: HYDROmorphone 1 MG/ML Syringe IV PRN (14:00)
[2021-10-19] MEDS ORDERED: hydrOXYzine HCL 100 MG/2 ML SDV IM PRN (14:00)
[2021-10-19] MEDS ORDERED: LORazepam 0.5 MG Tab PO PRN (14:11)
[2021-10-19] MEDS: Acetaminophen 500 MG Tab PO SCH ×2 (15:03→21:06)
[2021-10-19] MEDS: cefOXitin 2 GM in Sodium Chloride 0.9% 50 ML IV SCH ×2 (15:03→22:21)
[2021-10-19] MEDS ORDERED: MVI, Adult with Vitamin K 10 ML, Thiamine 200 MG, Zinc/Copper/Manganese/Selenium 1 ML i... IV SCH ×4 (16:00)
[2021-10-19] MEDS: oxyCODONE 5 MG Tab PO PRN (19:35)
[2021-10-19] MEDS: Heparin Sodium 5,000 Units/ML Vial SUBCUT SCH (21:07)
[2021-10-20] MEDS: traMADol 50 MG Tab PO PRN ×2 (00:17→06:20)
[2021-10-20] MEDS ORDERED: Iopamidol 612 MG/ML 50 ML SDV PO STA (01:07)
[2021-10-20] MEDS: cefOXitin 2 GM in Sodium Chloride 0.9% 50 ML IV SCH (03:52)
[2021-10-20] MEDS: Acetaminophen 500 MG Tab PO SCH (06:20)
[2021-10-20 07:27] VITALS: BP 115/74; PULSE 54
--- NOTE | 2021-10-20 08:56 | CR ---
[facility]I [facility] HISTORY: Postbariatric revision surgery FINDINGS: Patient swallowed water-soluble contrast. Upright views of the abdomen show no evidence of extravasation or obstruction. IMPRESSION: Status post bariatric revision surgery No extravasation or obstruction seen upper GI
[2021-10-20] MEDS ORDERED: Celecoxib 200 MG Cap PO SCH (09:00)
[2021-10-20] MEDS ORDERED: SCOPOLAMINE PATCH CHECK TOP SCH (09:00)
[2021-10-20] MEDS ORDERED: Venlafaxine 37.5 MG Cap.ER PO SCH (09:00)
--- NOTE | 2021-10-20 09:03 | DISCH ---
ADMISSION DIAGNOSIS: Partial small bowel obstruction. DISCHARGE DIAGNOSES: Exploratory laparotomy with: 1. Reduction of small bowel volvulus and closure of internal hernia. 2. Small bowel resection. 3. Secondary enteroenterostomy to re-establish small bowel Kay-en-Y anatomy. 4. Repair of incarcerated incisional hernia. 5. Placement of Interceed mesh. POSTOPERATIVE DIAGNOSES: Partial small bowel obstruction secondary to: 1. Small bowel volvulus. 2. 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 3. Incarcerated incisional trocar site hernia. 4. Extensive intra-abdominal adhesions. Date of procedure: 10/19/2021. Surgeon: Oswaldo Blood MD. HISTORY: Sol is a pleasant 41-year-old female with postprandial abdominal pain. After preoperative evaluation, discussion of possible risks and possible complications, she wished to proceed with surgical procedure. HOSPITAL COURSE: Sol had her surgery on 10/19/2021. She had no operative complications and was able to be discharged on postop day 1. PHYSICAL EXAMINATION: GENERAL: Sol is a pleasant 41-year-old female. VITAL SIGNS: Height is 5 feet 5 inches, weight 140 pounds. BMI is 23. TPR is 97.3, 54, 16, blood pressure 115/74. HEENT: Negative. NECK: Supple. HEART: Regular rate and rhythm. LUNGS: Clear. ABDOMEN: Dressing dry and intact. Abdominal binder is on. EXTREMITIES: Without peripheral edema. DISPOSITION: Discharged to home. CONDITION: Stable and improving. FOLLOWUP APPOINTMENT: With Ping Vizcaino PA-C, on 11/01/2021 at 9 a.m. HOME MEDICATIONS: Tramadol 50 mg p.o. q.6 hours p.r.n. pain, #12; Celebrex 200 mg p.o. b.i.d., #28; Senna Plus 2 tabs p.o. bedtime, #60; Tylenol 1000 mg q.6 hours scheduled; and may resume home medication. DIET: Step 2 diet for 1 day, then gradually start step 3. Drink 8 to 10 glasses of water a day. ACTIVITY: No lifting greater than 10 pounds for 6 weeks. Walk 6 times daily. Driving: Do not drive for 1 week. Shower/bathing: May shower. Keep operative site clean and dry. Wear abdominal binder for 6 weeks if tolerated. Take off Aquacel dressing in 2 days, 10/22/2021. Notify provider if any fever, increased pain, swelling, redness, drainage, nausea, vomiting. SPECIAL INSTRUCTIONS: Use incentive spirometer 10 times every hour while awake for 1 week. /[id number]
[2021-10-20] MEDS: Heparin Sodium 5,000 Units/ML Vial SUBCUT SCH (09:06)
[2021-10-20] MEDS: oxyCODONE 5 MG Tab PO PRN (09:12)
[2021-10-21] MEDS ORDERED: Cyanocobalamin (Vitamin B12) 1,000 MCG/ML SDV IM ONE (09:00)
--- NOTE | 2021-10-22 11:08 | OR ---
DATE OF PROCEDURE: 10/19/2021 SURGEON: Oswaldo Blood MD PREOPERATIVE DIAGNOSIS: Partial small bowel obstruction. POSTOPERATIVE DIAGNOSES: Partial small bowel obstruction secondary to: 1. Small bowel volvulus. 2. Stricture at jejunojejunostomy. 3. Incarcerated incisional hernia (trocar site). 4. Extensive intra-abdominal adhesions. OPERATIVE PROCEDURES: Exploratory laparotomy with lysis of adhesions: 1. Reduction of small bowel volvulus and closure of internal hernia (78296). 2. Small bowel resection (50506). 3. Secondary enteroenterostomy to re-establish small bowel Kay-en-Y anatomy (52178). 4. Repair of incarcerated incisional hernia (62150). 5. Placement of Interceed mesh to limit recurrent adhesion formation in pelvic and abdominal wall and underlying viscera (78337). ANESTHESIA: General. LANDSCAPE AND YARDWORK LABORER: Ping Vizcaino PA-C INDICATIONS FOR PROCEDURE: This is a 41-year-old status post Kay-en-Y gastric bypass, presenting with postprandial bloating and abdominal cramping consistent with partial small bowel obstruction. Plan is to proceed with a limited laparotomy and reduction in the volvulus or lysis of adhesions and small bowel resection as indicated. Based on intraoperative findings, potential risks of the procedure including bleeding, infection, injury to underlying viscera, leaks from any GI tract closures that might be required, possible persistence or recurrence of symptoms were all reviewed, and the patient wishes to proceed. DETAILS OF PROCEDURE: The patient was taken to the operating room, and after general endotracheal anesthesia was induced, a Lambert catheter was inserted, and the abdomen prepped and draped. A midline incision from the umbilicus roughly 4 fingerbreadths superiorly was then made and carried down to the full-thickness abdominal wall. Upon entering the peritoneal cavity, some adhesions in the omentum and anterior abdominal wall were taken down. The patient was noted to have a generalized slight duskiness of the small bowel. This was because of her severe stasis and initially found to be related to a small bowel volvulus. 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 The mesentery at that point was thickened and reddened consistent with chronic inflammation and the torsion at that level. The hernia was eventually reduced in a [id number] manner. At that point, all portions of the bowel appeared to have adequate blood supply, and mesenteric defect was then closed with some 2-0 silk stitch. Examination of small bowel did, however, show marked stricturing and some fibrotic changes at the level of the enteroenterostomy particularly where the Kay limb was entering that area and felt this would be best resected in order to make sure that the patient was relatively free of postoperative symptoms. The 3 components of the jejunostomy were then divided, flushed with the anastomosis, and this was accomplished with JERED huma as was the division of the underlying mesentery and the small bowel specimen delivered from the field. GI tract continuity was initially reestablished with a [id number] enteroenterostomy between what had been the most distal biliopancreatic limb and the most proximal common limb. This was done with internal firing of the Endo-JERED 60 mm). The common opening was closed transversely with the same stapler, and angles anastomosed and reinforced with some 3- 0 Vicryl stitch, and the mesenteric defect closed with a 2-0 silk stitch. GI tract continuity was then finalized with some reestablishment of the Kay-en-Y anatomy by means of reanastomosis of what has been the distal most Kay limb to the small bowel roughly 20 cm distal to the initial anastomosis. This was accompanying the same sequence of JERED firings and closure of the mesentery. At this point, no further problems noted. The abdomen was irrigated with antibiotic- containing saline solution. Interceed mesh was then placed in the incision from there down towards the pelvis to limit recurrent adhesion formation, and the midline fascia was then approximated with #2 Vicryl stitch, the subcutaneous tissue with 2 layers of 3-0 and 4-0 Vicryl stitch, and the skin with huma, and a dressing applied. Prior to closure, the patient did undergo bilateral transversus abdominis plane blocks, and the vaginal incision was also reinforced with 1% lidocaine mixed with Marcaine. The patient was taken to the recovery room in satisfactory condition. Physician casino assistant manager, Ping Vizcaino, played an essential role in assisting in this case, helping to position the patient, retract structures as needed, as well as suturing and cutting sutures when indicated. Her presence improved patient safety and decreased the operative time. Oswaldo Blood MD /[id number]
== END 2021-10-20 09:49 | disposition home or self-care (01) | DRG 220 ==
LOC: EDSTATUS 07:15 → JP.SDS 08:51 → JP.MS 13:48
PROVIDERS: ADMIT Surgery; ATTEND Surgery
PROC: 0DS80ZZ Reposition Small Intestine, Open Approach (ICD-10-PCS; principal; 2021-10-19)
PROC: 0DB80ZZ Excision of Small Intestine, Open Approach (ICD-10-PCS; 2021-10-19)
PROC: 0WQF0ZZ Repair Abdominal Wall, Open Approach (ICD-10-PCS; 2021-10-19)
PROC: 3E0M05Z Introduction of Adhesion Barrier into Peritoneal Cavity, Open Approach (ICD-10-PCS; 2021-10-19)
PROC: 0D160ZA Bypass Stomach to Jejunum, Open Approach (ICD-10-PCS; 2021-10-19)
DX: K95.89 Other complications of other bariatric procedure (principal); Y83.8 Other surgical procedures as the cause of abnormal reaction of the patient, or of later complication, without mention of misadventure at the time of the procedure; K56.2 Volvulus; K43.0 Incisional hernia with obstruction, without gangrene; K66.0 Peritoneal adhesions (postprocedural) (postinfection); Z90.49 Acquired absence of other specified parts of digestive tract; Z98.890 Other specified postprocedural states; Z79.52 Long term (current) use of systemic steroids; Z79.84 Long term (current) use of oral hypoglycemic drugs; Z98.84 Bariatric surgery status; Z79.899 Other long term (current) drug therapy; Z88.1 Allergy status to other antibiotic agents
CPT/HCPCS: 74240; 74240-26; A9270-GY; C9113; J0171; J0330; J0694; J1100; J1644; J2185; J2405; J2704; J2710; J2795; J3010; J3410; J3411; J3490; J7120; J7121; Q9967

== ENCOUNTER 2022-04-29 06:53 | Day surgery (SDC) | payer BC ==
[2022-04-29] MEDS ORDERED: Glycopyrrolate 0.2 MG/ML 5 ML MDV ONE (06:57)
[2022-04-29] MEDS ORDERED: Dexamethasone 4 MG/ML SDV ONE (06:57)
[2022-04-29] MEDS ORDERED: Neostigmine Methylsulfate 1 MG/ML 5 ML Syringe ONE (06:57)
[2022-04-29] MEDS ORDERED: Ondansetron 4 MG/2 ML SDV ONE (06:57)
[2022-04-29] MEDS ORDERED: Succinylcholine 200 MG/10 ML MDV ONE (06:57)
[2022-04-29] MEDS ORDERED: fentaNYL 250 MCG/5 ML SDV ONE (06:57)
[2022-04-29] MEDS ORDERED: Rocuronium 50 MG/5 ML Vial ONE (06:57)
[2022-04-29] MEDS ORDERED: Propofol 200 MG/20 ML SDV ONE (06:57)
[2022-04-29] MEDS ORDERED: Meropenem 500 MG SDV ONE (07:35)
[2022-04-29] MEDS ORDERED: Lidocaine 1% with EPINEPHrine 1:100,000 50 ML MDV ONE (07:35)
[2022-04-29] MEDS ORDERED: Bupivacaine 0.5% 50 ML MDV ONE (07:35)
[2022-04-29] MEDS ORDERED: ceFAZolin 2 GM in Premix Bag 1 BAG IV ONE (08:00)
[2022-04-29] MEDS ORDERED: Acetaminophen 500 MG Tab PO ONE (08:00)
[2022-04-29] MEDS ORDERED: Dextrose 5%-Lactated Ringers 1,000 ML IV SCH ×2 (08:00→11:45)
[2022-04-29] MEDS ORDERED: Celecoxib 200 MG Cap PO ONE (08:00)
[2022-04-29] MEDS ORDERED: Cyanocobalamin (Vitamin B12) 1,000 MCG/ML SDV IM ONE (08:30)
[2022-04-29] MEDS ORDERED: Ketamine 16 MG in Sodium Chloride 0.9% 19.84 ML IV SCH (08:45)
[2022-04-29] MEDS ORDERED: Ketamine 500 MG/5 ML MDV IV SCH (08:45)
[2022-04-29] MEDS ORDERED: Ropivacaine 30 ML, dexAMETHasone 8 MG, EPINEPHrine 0.4 MG, Sodium Chloride 0.9% 47.6 ML NERVRT SCH ×4 (08:45)
[2022-04-29] MEDS ORDERED: Lactated Ringers 1,000 ML ONE (09:24)
[2022-04-29] MEDS ORDERED: Meropenem 500 MG SDV IRR ONE (09:45)
[2022-04-29] MEDS ORDERED: fentaNYL 100 MCG/2 ML SDV ONE (09:47)
[2022-04-29] MEDS ORDERED: Ketorolac 30 MG/ML SDV ONE (09:55)
[2022-04-29] MEDS ORDERED: Cyclobenzaprine 10 MG Tab PO PRN (11:46)
[2022-04-29] MEDS ORDERED: Scopolamine 1.5 MG Transdermal Patch TOP PRN (11:51)
[2022-04-29] MEDS ORDERED: Labetalol 20 MG/4 ML Syringe IVPUSH PRN (12:00)
[2022-04-29] MEDS ORDERED: diphenhydrAMINE 50 MG/ML SDV IVPUSH PRN (12:00)
[2022-04-29] MEDS ORDERED: Acetaminophen 500 MG Tab PO PRN (12:00)
[2022-04-29] MEDS ORDERED: Metoclopramide 10 MG/2 ML SDV IVPUSH PRN (12:00)
[2022-04-29] MEDS ORDERED: HYDROmorphone 1 MG/ML Syringe IV PRN (12:00)
[2022-04-29] MEDS ORDERED: HYDROmorphone 0.5 MG/0.5 ML Syringe IVPUSH PRN (12:00)
[2022-04-29] MEDS ORDERED: Ondansetron 4 MG/2 ML SDV IVPUSH PRN (12:00)
[2022-04-29] MEDS ORDERED: hydrOXYzine HCL 100 MG/2 ML SDV IM PRN (12:00)
[2022-04-29] MEDS: traMADol 50 MG Tab PO PRN ×2 (12:50→18:41)
[2022-04-29] MEDS ORDERED: Pantoprazole 40 MG Vial IVPUSH SCH (14:00)
[2022-04-29] MEDS ORDERED: Acetaminophen 500 MG Tab PO SCH (14:00)
[2022-04-29 14:01] VITALS: BP 93/43; PULSE 98
[2022-04-29] MEDS ORDERED: MVI, Adult with Vitamin K 10 ML, Thiamine 200 MG, Zinc/Copper/Manganese/Selenium 1 ML i... IV SCH ×4 (16:00)
[2022-04-29] MEDS ORDERED: ceFAZolin 2 GM in Premix Bag 1 BAG IV SCH (16:00)
[2022-04-30] MEDS ORDERED: SCOPOLAMINE PATCH CHECK TOP SCH (09:00)
[2022-04-30] MEDS ORDERED: buPROPion 150 MG Tab.ER PO SCH (09:00)
[2022-04-30] MEDS ORDERED: Celecoxib 200 MG Cap PO SCH (09:00)
== END 2022-04-29 19:45 | disposition home or self-care (01) ==
LOC: JP.SDS 06:53 → JP.MS 10:30 → JP.SDS 19:45
PROVIDERS: ATTEND Surgery
DX: K43.0 Incisional hernia with obstruction, without gangrene (principal); K66.0 Peritoneal adhesions (postprocedural) (postinfection); E16.1 Other hypoglycemia; D50.9 Iron deficiency anemia, unspecified; F17.200 Nicotine dependence, unspecified, uncomplicated; K21.9 Gastro-esophageal reflux disease without esophagitis; Z98.84 Bariatric surgery status; Z79.899 Other long term (current) drug therapy; Z88.1 Allergy status to other antibiotic agents
CPT/HCPCS: A9270-GY; C1713; C1781; C9113; J0171; J0330; J0690; J1100; J1885; J2020; J2185; J2405; J2704; J2710; J2795; J3010; J3411; J3420; J3490; J7120; J7121